=== PATIENT | female | born 1985 | race African-American/Black ===

== ENCOUNTER 2025-04-04 01:51 | Inpatient (IN) | payer BC ==
[~2025-04-04] VITALS: Ht 157.5 cm; Wt 61.2 kg
[2025-04-04] VITALS: BP 138/82; O2SAT 100
[2025-04-04] MEDS ORDERED: ISOSORBIDE MONO60 MG PO (02:05)
[2025-04-04] MEDS ORDERED: ENVARSUS XR1 MG PO (02:05)
[2025-04-04] MEDS ORDERED: NASAL MIST126 ML (02:05)
[2025-04-04] MEDS ORDERED: SODIUM BICARBO650 MG PO (02:05)
[2025-04-04] MEDS ORDERED: PROGRAF1 MG PO (02:05)
[2025-04-04] MEDS ORDERED: ATROVENT HFA12.9 GM IH (02:06)
[2025-04-04] MEDS ORDERED: PREDNISONE10 M2 PO (02:06)
[2025-04-04] MEDS ORDERED: BENZONATATE200 M1 (02:07)
[2025-04-04] MEDS ORDERED: ELIQUIS5 MG PO (02:07)
[2025-04-04] MEDS ORDERED: AZITHROMYCIN250 MG PO (02:07)
[2025-04-04] MEDS ORDERED: CALCIUM 600+D1 EAC1 PO (02:07)
[2025-04-04] MEDS ORDERED: CELLCEPT250 MG PO (02:08)
[2025-04-04] MEDS ORDERED: CRESTOR40 MG PO (02:08)
[2025-04-04] MEDS ORDERED: LEXAPRO20 MG PO (02:08)
[2025-04-04] MEDS ORDERED: TOPROL XL50 M1 (02:09)
[2025-04-04] MEDS ORDERED: BACTRIM 400-801 EACH (02:09)
[2025-04-04] MEDS ORDERED: PROTONIX40 MG PO (02:10)
[2025-04-04] MEDS ORDERED: MAGNESIUM400 M1 PO (02:10)
[2025-04-04] MEDS ORDERED: TAMBOCOR150 MG PO (02:10)
[2025-04-04] MEDS ORDERED: LEVALBUTEROL HCL 0.63 MG/3 ML SOLUTION IH STA (02:11)
[2025-04-04] MEDS ORDERED: NITROGLYCERIN 250 ML IV ONE (02:15)
[2025-04-04] MEDS ORDERED: NITROGLYCERIN IN 5 % DEXTROSE 50 MG/250 ML BOTTLE IV ONE (02:21)
[2025-04-04 02:22] LABS: BASO % 0.2 % (0.1-1.2); EOS # 0.06 (0.04-0.54); EOS % 0.3 % (0.7-7.0); LYMPH # 4.64 (1.18-3.74); LYMPH % 22.4 % (19.3-53.1); MEAN PLATELET VOLUME 8.50 fl (9.4-12.4); MONO # 1.87 (0.24-0.82); MONO % 9.0 % (4.7-12.5); NEUT # 13.85 (1.56-6.13); NEUT % 67.1 % (34.0-71.1); RED CELL DISTRIBUTION WIDTH 14.6 % (11.6-14.4)
[2025-04-04 02:43] LABS: COVID-19 AG NEGATIVE (NEGATIVE)
[2025-04-04] MEDS ORDERED: CEFTRIAXONE SODIUM 1,000 MG VIAL IV STA (02:44)
[2025-04-04 02:51] LABS: INR 1.3
[2025-04-04 02:55] LABS: ALT/SGPT 24.0 U/L (12-78); AST/SGOT 34.0 U/L (15-37); BILIRUBIN TOTAL 0.64 mg/dL (0.3-1.2); BUN CREA RATIO 18.0 (7.0-25.0); CREATININE SERUM 1.21 mg/dL (0.55-1.02); GFR 50.07; GLOBULINA 4.7 G/DL (2.4-3.5); GLUCOSE FASTING 104.0 mg/dL (65-100); OSMOLALITY SERUM 289.0 MOSM/KG (275-295)
[2025-04-04] MEDS ORDERED: CEFTRIAXONE SODIUM 1,000 MG VIAL ONE (03:04)
[2025-04-04] MEDS ORDERED: NITROGLYCERIN IN 5 % DEXTROSE 250 ML IV SCH (15:00)
[2025-04-04] MEDS ORDERED: APIXABAN 5 MG TABLET PO SCH (17:00)
[2025-04-04 17:07] VITALS: BP 125/81; O2SAT 100
[2025-04-04 18:00] VITALS: BP 134/79; O2SAT 100
[2025-04-04 23:37] VITALS: BP 140/82; O2SAT 100
[2025-04-05] VITALS (13 sets, daily range): BP systolic 119–144; BP diastolic 87–96; O2SAT 97–100
[2025-04-05 08:00] LABS: INR 1.28
[2025-04-05] MEDS ORDERED: METOPROLOL SUCCINATE 50 MG TAB.SR.24H PO SCH (09:00)
[2025-04-05] MEDS ORDERED: PIPERACILLIN/TAZOBACTAM SODIUM 3.375 GM VIAL IV ONE (12:42)
[2025-04-05] MEDS ORDERED: METHYLPREDNISOLONE SOD SUCC 40 MG VIAL IV SCH (13:00)
[2025-04-05] MEDS ORDERED: PIPERACILLIN/TAZOBACTAM SODIUM 3.375 GM in DEXTROSE 5 % IN WATER 100 ML IV SCH (14:00)
== END 2025-04-05 22:31 | disposition left against medical advice (07) | DRG 310 ==
LOC: ER 01:51 → ICU-2 14:49
PROVIDERS: General Practice; ADMIT Internal Medicine; ATTEND Internal Medicine
PROC: 4A033R1 Measurement of Arterial Saturation, Peripheral, Percutaneous Approach (ICD-10-PCS; principal; 2025-04-04)
DX: I48.91 Unspecified atrial fibrillation (principal); R09.02 Hypoxemia; Z53.29 Procedure and treatment not carried out because of patient's decision for other reasons; R06.02 Shortness of breath